=== PATIENT | female | born 1995 | race Caucasian/White ===

== ENCOUNTER 2020-12-14 14:08 | Emergency (ER) | payer MEDICAID ==
[~2020-12-14] VITALS: Ht 177.8 cm; Wt 95.3 kg
[2020-12-14 14:08] VITALS: BP_SYST 129
[2020-12-14 15:13] VITALS: BP_SYST 129
== END 2020-12-14 15:14 | disposition home or self-care (01) ==
LOC: SED 14:08
DX: R55 Syncope and collapse (principal)
CPT/HCPCS: 93005; 99283